=== PATIENT | male | born 1960 | race Caucasian/White ===

== ENCOUNTER 2017-06-05 14:14 | Inpatient (IN) | payer OTHER ==
[~2017-06-05] VITALS: Ht 172.7 cm; Wt 88.5 kg
[~2017-06-05 14:14] MED LIST: ANTIVERT25 M1 PO; ASA325 M1 PO; ASA81 MG; BENICAR20 MG PO; CEFADROXIL500 MG PO; CRESTOR20 MG PO; DEPAKOTE ER500 MG PO; FLOVENT 110MCG7.9 GM; LEVSIN/SL0.125 MG SL; LOPRESSOR25 MG PO; NITROGLYCERIN0.4 MG; PLAVIX75 MG PO; PREPARATION H26 GM; PREVACID15 MG PO; ZANTAC300 MG PO; [UNRECOGNIZED DRUG - OTHER]; [UNRECOGNIZED DRUG - REMARK]; [UNRECOGNIZED DRUG - REMARK]
[2017-06-05] MEDS ORDERED: ZOCOR20 MG (14:27)
[2017-06-09] MEDS ORDERED: CLOPIDOGREL BIS75 MG PO (17:20)
[2017-06-09] MEDS ORDERED: FLAGYL500MG PO (17:20)
[2017-06-09] MEDS ORDERED: CIPRO500 MG PO (17:20)
[2017-06-09] MEDS ORDERED: ASA-EC81 MG PO (17:20)
[2017-06-09] MEDS ORDERED: SIMVASTATIN20 MG PO (17:20)
[2017-06-09] MEDS ORDERED: POM (MEDICAMENTO EN PO (17:20)
== END 2017-06-09 18:31 | disposition home or self-care (01) | DRG 392 ==
LOC: ER 14:14 → MEDI 06-06 10:27
PROC: 4A12X4Z Monitoring of Cardiac Electrical Activity, External Approach (ICD-10-PCS; principal; 2017-06-07)
DX: K57.32 Diverticulitis of large intestine without perforation or abscess without bleeding (principal); I25.10 Atherosclerotic heart disease of native coronary artery without angina pectoris; Z98.61 Coronary angioplasty status; J45.998 Other asthma

== ENCOUNTER 2020-08-02 05:14 | Emergency (ER) | payer OTHER ==
[~2020-08-02] VITALS: Ht 172.7 cm; Wt 93.0 kg
[~2020-08-02 05:14] MED LIST changes: +ASA-EC81 MG PO; +CIPRO500 MG PO; +CLOPIDOGREL BIS75 MG PO; +FLAGYL500MG PO; +POM (MEDICAMENTO EN PO; +SIMVASTATIN20 MG PO; +ZOCOR20 MG
[2020-08-02] MEDS ORDERED: PEPCID AC20 MG (05:49)
[2020-08-02] MEDS ORDERED: ALIVE ONCE DAI1 EACH (05:50)
== END 2020-08-02 13:55 | disposition home or self-care (01) ==
LOC: ER 05:14
DX: K29.70 Gastritis, unspecified, without bleeding (principal); R10.13 Epigastric pain

== ENCOUNTER 2023-04-20 15:07 | Emergency (ER) | payer OTHER ==
[~2023-04-20] VITALS: Ht 172.7 cm; Wt 95.3 kg
[~2023-04-20 15:07] MED LIST changes: +ALIVE ONCE DAI1 EACH; +PEPCID AC20 MG
== END 2023-04-20 20:31 | disposition home or self-care (01) ==
LOC: ER 15:07
DX: L02.212 Cutaneous abscess of back [any part, except buttock and flank] (principal); I25.10 Atherosclerotic heart disease of native coronary artery without angina pectoris; K57.30 Diverticulosis of large intestine without perforation or abscess without bleeding; Z88.2 Allergy status to sulfonamides
CPT/HCPCS: 96372; 99282; J0696

== ENCOUNTER 2023-12-26 07:03 | Outpatient (CLI) | payer OTHER ==
[2023-12-26 09:14] LABS: HEMATOCRIT 42.8 % (39.0-48.0); MEAN CELL VOLUME 89.1 fL (80.0-100.00); MEAN CORPUSCULAR HEMOGLOBIN 31.2 pg (27.00-32.0); PLATELET COUNT 283 K/uL (150-450); RED CELL DISTRIBUTION WIDTH 12.7 % (11.5-14.5)
[2023-12-26 09:21] LABS: ERYTHROCYTE SEDIMENTATION RATE 12 mm/hr
[2023-12-26 09:27] LABS: PH,URINE 5.5 (5.0-8.0); URINE APPEARANCE Clear; URINE BILIRRUBIN Negative (NEGATIVE); URINE BLOOD Negative; URINE COLOR Yellow; URINE GLUCOSE Negative (NEGATIVE); URINE KETONE Negative (NEGATIVE); URINE LEUKOCYTE Negative; URINE NITRATE Negative; URINE PROTEIN Negative (NEGATIVE); URINE UROBILINOGEN 0.2 E.U./dl
[2023-12-26 09:35] LABS: URINE RBC 3.6 uL (0.0-20.8); URINE WBC 4.4 uL (0.0-23.2)
[2023-12-26 09:58] LABS: ALBUMIN 3.9 gm/dL (3.4-5.0); ALKALINE PHOSPHATASE 53 U/L (50-136); ALT/SGPT 43 U/L (12-78); ANION GAP 14 (10.0-20.0); AST/SGOT 22 U/L (15-37); BILIRUBIN TOTAL 0.37 mg/dL (0.3-1.2); BLOOD UREA NITROGEN 29 mg/dL (7-18); BUN CREA RATIO 23 (7.0-25.0); CALCIUM 9.3 mg/dL (8.5-10.1); CARBON DIOXIDE 25 mEq/L (21-32); CHLORIDE 107 mmol/L (98-107); CHOL HDL RATIO 3.7 (0-5.0); CHOLESTEROL 147 mg/dL (0-200); CREATININE SERUM 1.24 mg/dL (0.70-1.30); GFR 59.07; GLUCOSE FASTING 95 mg/dL (65-100); HDL 40 mg/dl (40-60); OSMOLALITY SERUM 287 MOSM/KG (275-295); POTASSIUM 4.51 mEq/L (3.5-5.1); PROSTATIC SPECIFIC ANTIGEN 0.805 NG/ML (0.010-4.00); SODIUM 141 mmol/L (136-145); T4 FREE 0.93 NG/ML (0.76-1.46); TOTAL PROTEIN 7.9 gm/dL (6.4-8.2)
[2023-12-26 10:00] LABS: C-REACTIVE PROTEIN < 0.29 MG/DL (0.00-0.29); LDL 47 mg/dl (0-130); TRIGLYCERIDES 302 mg/dL (0-150); VLDL 60 (0-39)
== END 2023-12-26 07:09 | disposition home or self-care (01) ==
LOC: LAB 07:03
PROVIDERS: ATTEND Internal Medicine
DX: D50.9 Iron deficiency anemia, unspecified (principal); E11.9 Type 2 diabetes mellitus without complications; E78.2 Mixed hyperlipidemia; E03.9 Hypothyroidism, unspecified; E55.9 Vitamin D deficiency, unspecified; N40.0 Benign prostatic hyperplasia without lower urinary tract symptoms; N39.0 Urinary tract infection, site not specified; R80.9 Proteinuria, unspecified

== ENCOUNTER 2024-09-05 08:35 | Outpatient (CLI) | payer OTHER | END 2024-09-05 08:37 | disposition home or self-care (01) | LOC: NUCLEAR 08:35 | PROVIDERS: ATTEND Internal Medicine Cardiovascular Disease | DX: I25.10 Atherosclerotic heart disease of native coronary artery without angina pectoris (principal) ==